=== PATIENT | female | born 1985 | race Caucasian/White ===

== ENCOUNTER 2018-12-17 16:03 | Emergency (ER) | payer MEDICAID ==
[~2018-12-17] VITALS: Ht 160 cm; Wt 49.0 kg
[2018-12-17 16:28] VITALS: Ht 160 cm; Wt 49.0 kg
[2018-12-17 18:00] VITALS: BP 110/65
== END 2018-12-17 18:07 | disposition home or self-care (01) ==
LOC: ED 16:03
DX: S81.852A Open bite, left lower leg, initial encounter (principal); S80.812A Abrasion, left lower leg, initial encounter; W54.0XXA Bitten by dog, initial encounter; Y93.89 Activity, other specified; Y92.89 Other specified places as the place of occurrence of the external cause; Y99.8 Other external cause status
CPT/HCPCS: 90715